=== PATIENT | female | born 2005 | race Caucasian/White ===

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

== ENCOUNTER → 2024-01-03 | Outpatient (REF) | payer OTHER ==
[~2024-01-03] MED LIST changes: +CELE0.09 PO; +NITR-67 PO
== END ==
LOC: M LAB REF 19:55
PROVIDERS: ATTEND Physician Assistant Medical
DX: B34.9 Viral infection, unspecified (principal)

== ENCOUNTER → 2024-01-03 | Outpatient (REF) | payer OTHER ==
[2024-01-03 20:16] LABS: APPEARANCE, URINE CLEAR (CLEAR); BACTERIA, URINE AUTO NEGATIVE (NEGATIVE); BILIRUBIN, URINE AUTO NEGATIVE (NEGATIVE); BLOOD, URINE BLOOD 1+ (NEGATIVE); COLOR, URINE YELLOW (YELLOW); GLUCOSE, URINE (UA) AUTO NEGATIVE (NEGATIVE); KETONE, URINE AUTO NEGATIVE (NEGATIVE); LEUKOCYTE ESTERASE, URINE AUTO NEGATIVE (NEGATIVE); MUCUS, URINE SMALL (NEGATIVE); NITRITE, URINE AUTO NEGATIVE (NEGATIVE); PROTEIN, URINE AUTO NEGATIVE (NEGATIVE); RBC, URINE AUTO 1 /HPF (0-3); SPECIFIC GRAVITY URINE AUTO 1.023 (1.002-1.035); SQUAMOUS EPITHELIAL CELL UR AU 1 /HPF (0-6); UROBILINOGEN, URINE AUTO 0.2 mg/dL (0.0-2.0); WBC, URINE AUTO 2 /HPF (0-3)
== END ==
LOC: M LAB REF 19:38
PROVIDERS: ATTEND Physician Assistant Medical
DX: N39.0 Urinary tract infection, site not specified (principal)

== ENCOUNTER 2024-01-06 00:21 | Emergency (ER) | payer OTHER ==
[~2024-01-06] VITALS: Ht 162.6 cm; Wt 95.5 kg
[2024-01-06 03:33] VITALS: BP 136/78; TEMP 97.8; O2SAT 100
== END 2024-01-06 04:16 | disposition left against medical advice (07) ==
LOC: M ED 00:21
DX: Z53.21 Procedure and treatment not carried out due to patient leaving prior to being seen by health care provider (principal)

== ENCOUNTER → 2024-01-07 | Outpatient (CLI) | payer OTHER ==
[~2024-01-07] MED LIST changes: +ABIL1INJ2 IM; +ALBU2.5V10 INH; +DICY-61 PO; +HALO1TAB19 PO; +METR-265 PO; +NAPR500T6 PO; +OXCA300T14 PO; +PERM5CRE9 EXT; +RISATAB3 PO; +SERT50TA29 PO
== END ==
LOC: M WUC 11:26
PROVIDERS: ATTEND Nurse Practitioner Family
DX: J45.20 Mild intermittent asthma, uncomplicated (principal)

== ENCOUNTER → 2024-01-08 | Outpatient (REF) | payer OTHER ==
[~2024-01-08] MED LIST changes: -ABIL1INJ2 IM; -ALBU2.5V10 INH; -DICY-61 PO; -HALO1TAB19 PO; -METR-265 PO; -NAPR500T6 PO; -OXCA300T14 PO; -PERM5CRE9 EXT; -RISATAB3 PO; -SERT50TA29 PO
[2024-01-08 18:05] LABS: BASO # 0.1 10^3/uL (0.0-0.2); BASO % 1.4 % (0.0-1.0); EOS # 0.4 10^3/uL (0.0-0.5); EOS % 5.7 % (0.0-3.0); HEMATOCRIT 41.4 % (36.0-47.0); HEMOGLOBIN 13.1 g/dl (12.0-15.5); LYMPH # 2.5 10^3/uL (1.5-5.0); LYMPH % 32.9 % (24.0-44.0); MEAN CORPUSCULAR HEMOGLOBIN 27.3 pg (27.0-33.0); MEAN CORPUSCULAR HGB CONC 31.6 g/dl (32.0-36.5); MEAN CORPUSCULAR VOLUME 86.4 fl (80.0-96.0); MONO # 0.5 10^3/uL (0.0-0.8); MONO % 6.9 % (2.0-8.0); NEUTROPHILS % 52.7 % (36.0-66.0); PLATELET COUNT, AUTOMATED 316 10^3/uL (150-450); RED BLOOD COUNT 4.79 10^6/uL (4.00-5.40); WHITE BLOOD COUNT 7.6 10^3/uL (4.0-10.0)
[2024-01-08 18:32] LABS: LIPASE 40 U/L (12-53)
[2024-01-08 18:33] LABS: ALBUMIN 3.7 G/DL (3.2-5.2); ALKALINE PHOSPHATASE 138 U/L (46-116); ALT/SGPT 22 U/L (7.0-40); AST/SGOT 12 U/L (<34); BILIRUBIN,TOTAL 0.2 MG/DL (0.3-1.2); BLOOD UREA NITROGEN 10 MG/DL (9-23); CALCIUM LEVEL 9.8 MG/DL (8.5-10.1); CARBON DIOXIDE LEVEL 26 MMOL/L (20-31); CHLORIDE LEVEL 107 MMOL/L (98-107); CREATININE FOR GFR 0.64 MG/DL (0.55-1.30); GLUCOSE, FASTING 102 MG/DL (60-100); SODIUM LEVEL 141 MMOL/L (136-145); TOTAL PROTEIN 6.7 G/DL (5.7-8.2)
[2024-01-08 18:57] LABS: HCG, SERUM QUALITATIVE NEGATIVE (NEGATIVE)
== END ==
LOC: M LAB REF 16:48
PROVIDERS: ATTEND Physician Assistant
DX: R10.9 Unspecified abdominal pain (principal)

== ENCOUNTER 2024-01-12 10:45 | Outpatient (RCR) | payer OTHER ==
[2024-01-14] MEDS ORDERED: ABIL1INJ2 IM (16:38)
[2024-01-15] MEDS ORDERED: METR-265 PO (06:53)
[2024-01-15] MEDS ORDERED: ATOM25CA2 PO (07:06)
[2024-01-15] MEDS ORDERED: DICY-61 PO (07:06)
[2024-01-15] MEDS ORDERED: ALBU2.5V10 INH (07:06)
[2024-01-15] MEDS ORDERED: NAPR500T6 PO (07:06)
[2024-01-15] MEDS ORDERED: HALO1TAB19 PO (07:06)
[2024-01-15] MEDS ORDERED: OXCA300T14 PO (07:06)
[2024-01-15] MEDS ORDERED: RISATAB3 PO (07:06)
[2024-01-15] MEDS ORDERED: PERM5CRE9 EXT (07:06)
[2024-01-15] MEDS ORDERED: SERT50TA29 PO (07:06)
== END 2024-01-21 ==
LOC: M PT 10:45
PROVIDERS: ATTEND Physician Assistant
DX: S83.212A Bucket-handle tear of medial meniscus, current injury, left knee, initial encounter (principal)

== ENCOUNTER 2024-01-14 12:03 | Inpatient (IN) | payer MEDICAID, OTHER ==
[~2024-01-14] VITALS: Ht 162.6 cm; Wt 95.5 kg
[2024-01-14 14:26] LABS: HEMOGLOBIN 13.1 g/dl (12.0-15.5); MEAN CORPUSCULAR HEMOGLOBIN 27.8 pg (27.0-33.0); PLATELET COUNT, AUTOMATED 248 10^3/uL (150-450); RED BLOOD COUNT 4.71 10^6/uL (4.00-5.40)
[2024-01-14 14:43] LABS: BARBITURATES URINE NEGATIVE (NEGATIVE); COCAINE METABOLITE URINE NEGATIVE (NEGATIVE); METHADONE URINE NEGATIVE (NEGATIVE); OPIATES URINE NEGATIVE (NEGATIVE)
[2024-01-14 14:44] LABS: AMPHETAMINES LEVEL URINE NEGATIVE (NEGATIVE); BENZODIAZEPINES URINE NEGATIVE (NEGATIVE); CANNABINOIDS URINE NEGATIVE (NEGATIVE); PHENCYCLIDINE URINE NEGATIVE (NEGATIVE)
[2024-01-14 14:45] LABS: ETHYL ALCOHOL (ETHANOL) 0.003 % (0.000-0.010)
[2024-01-14 14:47] LABS: ALBUMIN 3.9 G/DL (3.2-5.2); ALKALINE PHOSPHATASE 145 U/L (46-116); ALT/SGPT 26 U/L (7.0-40); AST/SGOT 16 U/L (<34); BILIRUBIN,DIRECT 0.1 MG/DL (<0.4); BILIRUBIN,TOTAL 0.4 MG/DL (0.3-1.2); BLOOD UREA NITROGEN 14 MG/DL (9-23); CALCIUM LEVEL 9.9 MG/DL (8.5-10.1); CARBON DIOXIDE LEVEL 28 MMOL/L (20-31); CHLORIDE LEVEL 108 MMOL/L (98-107); CREATININE FOR GFR 0.69 MG/DL (0.55-1.30); GLUCOSE, FASTING 74 MG/DL (60-100); POTASSIUM SERUM 4.3 MMOL/L (3.5-5.1); SALICYLATE LEVEL < 3.0 MG/DL (<30); SODIUM LEVEL 142 MMOL/L (136-145); TOTAL PROTEIN 6.7 G/DL (5.7-8.2)
[2024-01-14 14:49] LABS: THYROID STIMULATING HORMONE 0.781 uIU/ML (0.48-4.17)
[2024-01-14] MEDS ORDERED: ABIL1INJ2 IM (16:38)
[2024-01-14] MEDS ORDERED: traZODone 50 MG TAB PO PRN (16:55)
[2024-01-14] MEDS ORDERED: MOM 30ML SUSPENSION UDC PO PRN (17:25)
[2024-01-14] MEDS ORDERED: IBUPROFEN 400MG TAB PO PRN (17:25)
[2024-01-14] MEDS: haloperidoL 0.5 MG TAB PO SCH (20:34)
[2024-01-14] MEDS: GABAPENTIN 300 MG CAP PO SCH (20:34)
[2024-01-14 22:30] VITALS: BP 161/92; TEMP 98.3; O2SAT 98
[2024-01-14] MEDS: traZODone 50 MG TAB PO PRN (22:38)
[2024-01-14] MEDS: ACETAMINOPHEN TAB 650MG DOSE (2X325MG) PO PRN (22:38)
[2024-01-15 06:20] VITALS: BP 119/68; TEMP 98; O2SAT 99
[2024-01-15] MEDS ORDERED: METR-265 PO (06:53)
[2024-01-15] MEDS ORDERED: DICY-61 PO (07:06)
[2024-01-15] MEDS ORDERED: NAPR500T6 PO (07:06)
[2024-01-15] MEDS ORDERED: RISATAB3 PO (07:06)
[2024-01-15] MEDS ORDERED: ATOM25CA2 PO (07:06)
[2024-01-15] MEDS ORDERED: HALO1TAB19 PO (07:06)
[2024-01-15] MEDS ORDERED: OXCA300T14 PO (07:06)
[2024-01-15] MEDS ORDERED: ALBU2.5V10 INH (07:06)
[2024-01-15] MEDS ORDERED: SERT50TA29 PO (07:06)
[2024-01-15] MEDS ORDERED: PERM5CRE9 EXT (07:06)
[2024-01-15] MEDS ORDERED: HOME MED LIST COMPLETE! XX SCH (07:10)
[2024-01-15] MEDS ORDERED: CETIRIZINE (ZyrTEC) 10 MG TAB PO SCH (09:00)
[2024-01-15] MEDS ORDERED: ATOMOXETINE HCL 40 MG CAP (STRATTERA) PO SCH (09:00)
[2024-01-15] MEDS ORDERED: FLUTICASONE PROP 0.05% NASAL SPRAY 16 GM (FLONASE) NARES SCH (09:00)
[2024-01-15] MEDS: LACTOBACILLUS ACIDOPHILUS CAP (BACID) PO SCH (09:11)
[2024-01-15] MEDS: CETIRIZINE (ZyrTEC) 10 MG TAB PO SCH (09:12)
[2024-01-15] MEDS: NAPROXEN 250 MG TAB PO SCH (09:12)
[2024-01-15] MEDS: OXcarbazepine 300 MG TAB PO SCH (09:12)
[2024-01-15] MEDS: DICYCLOMINE 10 MG CAP PO SCH (09:12)
[2024-01-15] MEDS: MAALOX 30 ML SUSP *UDC PO PRN (09:48)
[2024-01-15] MEDS: FLUTICASONE PROP 0.05% NASAL SPRAY 16 GM (FLONASE) NARES SCH (09:48)
[2024-01-15] MEDS: AZELASTINE 137MCG NASAL SPY 30 ML (ASTELIN) SCH (09:48)
[2024-01-15 18:27] VITALS: BP 151/89; TEMP 98.2; O2SAT 96
[2024-01-15] MEDS: ONDANSETRON 4MG ORAL DISINTEGRATING TAB PO PRN (19:06)
[2024-01-15] MEDS: MONTELUKAST 10 MG TAB PO SCH (21:14)
[2024-01-15] MEDS: OMEPRAZOLE 20MG CAP PO SCH (21:14)
[2024-01-15] MEDS: PERMETHRIN 5% CREAM 60 GM EXT SCH (21:20)
[2024-01-16 06:15] VITALS: BP 145/78; TEMP 97.6
[2024-01-16] MEDS ORDERED: ALBUTEROL SULFATE 2.5MG/0.5ML INH NEB SOLN INH PRN (08:55)
[2024-01-16] MEDS: ATOMOXETINE HCL 40 MG CAP (STRATTERA) PO SCH (09:00)
[2024-01-16] MEDS ORDERED: LEVONORGESTREL ETHINYL ESTRADIOL PO SCH (09:00)
[2024-01-16] MEDS: prednisoLONE ACET 1% OPHTH SUSP 5ML OU SCH (09:00)
[2024-01-16] MEDS: UNRESOLVED PATIENT OWN MED ORDER XX SCH (11:14)
[2024-01-16] MEDS: diphenhydrAMINE 25MG CAP PO PRN (19:16)
[2024-01-17 10:16] VITALS: BP 145/78; TEMP 97.6; O2SAT 96
[2024-01-17] MEDS: ONDANSETRON 4MG TAB PO PRN (10:56)
[2024-01-17] MEDS: FLUCONAZOLE 50MG TABLET PO ONE (15:48)
[2024-01-18 06:32] VITALS: BP 129/80; TEMP 98.7; O2SAT 98
[2024-01-18] MEDS ORDERED: ONDANSETRON 4MG ORAL DISINTEGRATING TAB PO PRN (10:15)
[2024-01-18 22:00] VITALS: BP 129/80; TEMP 98.7; O2SAT 98
[2024-01-19 06:16] VITALS: BP 127/74; TEMP 98.7; O2SAT 97
[2024-01-19] MEDS: diphenhydrAMINE 50MG CAP PO ONE (14:59)
[2024-01-19] MEDS: LORazepam 2 MG TAB PO ONE (15:00)
[2024-01-19 19:46] VITALS: BP 141/67; TEMP 97.1
[2024-01-20 06:09] VITALS: BP 130/72; TEMP 98.1; O2SAT 97
[2024-01-20] MEDS ORDERED: chlorproMAZINE INJ 50MG/2ML AMP As Ordered ONE (10:12)
[2024-01-20] MEDS: chlorproMAZINE INJ 50MG/2ML AMP IM STA (10:16)
[2024-01-20] MEDS: LORazepam 2 MG TAB PO STA (10:19)
[2024-01-20] MEDS: diphenhydrAMINE 50MG CAP PO STA (10:19)
[2024-01-20] MEDS: diphenhydrAMINE 50MG/ML VIAL IM STA (10:20)
[2024-01-20] MEDS: LORazepam 2 MG/ML 1ML VIAL IM STA (10:20)
[2024-01-20] MEDS: HALOPERIDOL LACTATE 5MG/ML VIAL IM STA (10:21)
[2024-01-20] MEDS: ALBUTEROL 90 MCG/ACT 8GM HFA INHALER INH PRN (10:33)
[2024-01-20 17:15] VITALS: BP 106/58; TEMP 97.5; O2SAT 98
[2024-01-21 06:07] VITALS: BP 116/58; TEMP 97.5; O2SAT 98
[2024-01-21] MEDS: GABAPENTIN 300 MG CAP PO PRN (10:53)
[2024-01-22] MEDS: diphenhydrAMINE 25MG CAP PO SCH (09:26)
[2024-01-23 06:15] VITALS: BP 145/85; TEMP 97.6; O2SAT 97
[2024-01-23] MEDS ORDERED: DIPH-435 PO (08:00)
[2024-01-23] MEDS ORDERED: HALO1TAB19 PO (08:00)
== END 2024-01-23 13:27 | disposition home or self-care (01) | DRG 753 ==
LOC: M ED 12:03 → M ED INP 17:25 → M PSY 20:59
PROVIDERS: ADMIT Student in an Organized Health Care Education/Training Program; ATTEND Psychiatry & Neurology Child & Adolescent Psychiatry
DX: F31.9 Bipolar disorder, unspecified (principal); R45.851 Suicidal ideations; F43.10 Post-traumatic stress disorder, unspecified; F41.9 Anxiety disorder, unspecified; F60.3 Borderline personality disorder; J45.909 Unspecified asthma, uncomplicated; D50.9 Iron deficiency anemia, unspecified; M25.561 Pain in right knee; K21.9 Gastro-esophageal reflux disease without esophagitis; L20.9 Atopic dermatitis, unspecified; K58.9 Irritable bowel syndrome, unspecified; Z78.1 Physical restraint status; Z81.8 Family history of other mental and behavioral disorders; Z62.819 Personal history of unspecified abuse in childhood; Z63.8 Other specified problems related to primary support group; Z79.899 Other long term (current) drug therapy; Z88.2 Allergy status to sulfonamides

== ENCOUNTER 2024-02-17 09:10 | Day surgery (SDC) | payer OTHER ==
[~2024-02-17] VITALS: Ht 157.5 cm; Wt 94.6 kg
[~2024-02-17 09:10] MED LIST changes: +ABIL1INJ2 IM; +ALBU2.5V10 INH; -ARIP1TAB43 PO; +ARIP20TA51 PO; +DICY-61 PO; +DIPH-435 PO; +HALO1TAB19 PO; +METR-265 PO; +NAPR500T6 PO; +NS 1,000 ML IV ONE; +OXCA300T14 PO; +PERM5CRE9 EXT; +POLY2.5S OU; +RISATAB3 PO; +SERT50TA29 PO; +propofoL 200 MG/20 ML VIAL As Ordered ONE
[2024-02-17] MEDS ORDERED: MIDAZOLAM INJ 2MG/2ML VIAL As Ordered ONE (10:47)
[2024-02-17] MEDS ORDERED: fentaNYL 100 MCG/2 ML INJECTION As Ordered ONE (10:47)
[2024-02-17 11:12] VITALS: TEMP 98.5
[2024-02-17 11:32] VITALS: BP 142/77; O2SAT 98
[2024-02-17 13:07] LABS: CLOSTRIDIUM DIFFICILE PCR POSITIVE (NEGATIVE)
== END 2024-02-17 11:45 | disposition home or self-care (01) ==
LOC: M OPP 09:10
PROVIDERS: ATTEND Internal Medicine Gastroenterology
DX: K52.9 Noninfective gastroenteritis and colitis, unspecified (principal); R11.0 Nausea; K29.80 Duodenitis without bleeding; K31.89 Other diseases of stomach and duodenum; D80.2 Selective deficiency of immunoglobulin A [IgA]; R12 Heartburn; J45.909 Unspecified asthma, uncomplicated; Z79.1 Long term (current) use of non-steroidal anti-inflammatories (NSAID); Z79.51 Long term (current) use of inhaled steroids; Z79.82 Long term (current) use of aspirin; Z79.891 Long term (current) use of opiate analgesic; Z79.899 Other long term (current) drug therapy; Z88.2 Allergy status to sulfonamides
CPT/HCPCS: 43239; 45380; 87324; 88305; J2250; J3010

== ENCOUNTER → 2024-03-16 | Outpatient (REF) | payer OTHER ==
[~2024-03-16] MED LIST changes: -NS 1,000 ML IV ONE; -propofoL 200 MG/20 ML VIAL As Ordered ONE
[2024-03-17 13:09] LABS: APPEARANCE, URINE HAZY (CLEAR); BACTERIA, URINE AUTO NEGATIVE (NEGATIVE); BILIRUBIN, URINE AUTO NEGATIVE (NEGATIVE); BLOOD, URINE BLOOD 2+ (NEGATIVE); CALCIUM OXALATE CRYSTALS MODERATE; COLOR, URINE YELLOW (YELLOW); GLUCOSE, URINE (UA) AUTO NEGATIVE (NEGATIVE); KETONE, URINE AUTO NEGATIVE (NEGATIVE); LEUKOCYTE ESTERASE, URINE AUTO NEGATIVE (NEGATIVE); MUCUS, URINE SMALL (NEGATIVE); NITRITE, URINE AUTO NEGATIVE (NEGATIVE); PROTEIN, URINE AUTO NEGATIVE (NEGATIVE); RBC, URINE AUTO 2 /HPF (0-3); SPECIFIC GRAVITY URINE AUTO 1.021 (1.002-1.035); SQUAMOUS EPITHELIAL CELL UR AU 2 /HPF (0-6); UROBILINOGEN, URINE AUTO 0.2 mg/dL (0.0-2.0); WBC, URINE AUTO 2 /HPF (0-3)
[2024-03-17 14:54] LABS: Trichomonas vaginalis (AMP) NOT DETECTED (NEGATIVE)
[2024-03-17 15:17] LABS: GC DNA AMPLIFICATION NEGATIVE (NEGATIVE)
== END ==
LOC: M LAB REF 12:34
PROVIDERS: ATTEND Nurse Practitioner Family
DX: R30.0 Dysuria (principal)

== ENCOUNTER 2024-04-14 12:46 | Outpatient (RCR) | payer OTHER ==
[~2024-04-14 12:46] MED LIST changes: -ARIP10TA32; -ARIP10TA32 PO; +ARIP10TA63; +ARIP10TA63 PO; +GABA-1172 PO; -GABA-282 PO; +NAPR-1405 PO; -NAPR500T6 PO
== END 2024-04-22 ==
LOC: M PT 12:46
PROVIDERS: ATTEND Physician Assistant
DX: S83.512D Sprain of anterior cruciate ligament of left knee, subsequent encounter (principal)

== ENCOUNTER 2024-05-05 09:14 | Outpatient (RCR) | payer OTHER | END 2024-05-22 | LOC: M PT 09:14 | PROVIDERS: ATTEND Physician Assistant | DX: S83.512D Sprain of anterior cruciate ligament of left knee, subsequent encounter (principal); Z98.890 Other specified postprocedural states ==

== ENCOUNTER → 2024-06-29 | Outpatient (REF) | payer OTHER ==
[2024-06-30 13:21] LABS: AMORPHOUS SEDIMENT MODERATE (NEGATIVE); APPEARANCE, URINE TURBID (CLEAR); BACTERIA, URINE AUTO 1+ (NEGATIVE); BILIRUBIN, URINE AUTO NEGATIVE (NEGATIVE); BLOOD, URINE BLOOD NEGATIVE (NEGATIVE); COLOR, URINE AMBER (YELLOW); GLUCOSE, URINE (UA) AUTO NEGATIVE (NEGATIVE); KETONE, URINE AUTO NEGATIVE (NEGATIVE); LEUKOCYTE ESTERASE, URINE AUTO 3+ (NEGATIVE); MUCUS, URINE LARGE (NEGATIVE); NITRITE, URINE AUTO NEGATIVE (NEGATIVE); PROTEIN, URINE AUTO NEGATIVE (NEGATIVE); RBC, URINE AUTO 3 /HPF (0-3); SPECIFIC GRAVITY URINE AUTO 1.024 (1.002-1.035); SQUAMOUS EPITHELIAL CELL UR AU 0 /HPF (0-6); UROBILINOGEN, URINE AUTO 0.2 mg/dL (0.0-2.0); WBC, URINE AUTO 132 /HPF (0-3)
[2024-06-30 14:14] LABS: Trichomonas vaginalis (AMP) NOT DETECTED (NEGATIVE)
[2024-06-30 14:38] LABS: GC DNA AMPLIFICATION NEGATIVE (NEGATIVE)
== END ==
LOC: M LAB REF 12:21
PROVIDERS: ATTEND Nurse Practitioner Family
DX: R30.0 Dysuria (principal); R35.0 Frequency of micturition

== ENCOUNTER → 2024-08-09 | Outpatient (REF) | payer OTHER ==
[2024-08-09 17:14] LABS: THYROID STIMULATING HORMONE 2.706 uIU/ML (0.48-4.17)
[2024-08-09 17:15] LABS: ALKALINE PHOSPHATASE 160 U/L (35-104); ALT/SGPT 23 U/L (7.0-40); AST/SGOT 13 U/L (<34); BILIRUBIN,DIRECT < 0.1 MG/DL (<0.4); BILIRUBIN,TOTAL 0.3 MG/DL (0.3-1.2); TOTAL PROTEIN 7.3 G/DL (5.7-8.2)
== END ==
LOC: M LAB REF 16:08
PROVIDERS: ATTEND Nurse Practitioner Family
DX: R11.2 Nausea with vomiting, unspecified (principal); Z68.36 Body mass index [BMI] 36.0-36.9, adult

== ENCOUNTER → 2024-09-26 | Outpatient (REF) | payer OTHER ==
[~2024-09-26] MED LIST changes: +FLUV100T20; +FLUV100T20 PO; -FLUV100T25; -FLUV100T25 PO; +FLUV25TA11; -FLUV25TA13
== END ==
LOC: M LAB REF 17:09
PROVIDERS: ATTEND Physician Assistant
DX: J02.9 Acute pharyngitis, unspecified (principal)

== ENCOUNTER 2025-04-09 09:44 | Emergency (ER) | payer MEDICAID, OTHER ==
[~2025-04-09] VITALS: Ht 162.6 cm; Wt 100.6 kg
[~2025-04-09 09:44] MED LIST changes: -IBUP-1022 PO; +IBUP600T42 PO; +LITH300T2; +METH36TA13 PO; -METH36TA5 PO; -PERM5CRE9 EXT; +PERM60CR2 EXT; +TOPI-21
[2025-04-09 11:49] LABS: BASO # 0.1 10^3/uL (0.0-0.2); BASO % 1.3 % (0.0-1.0); EOS # 0.5 10^3/uL (0.0-0.5); EOS % 6.0 % (0.0-3.0); LYMPH # 2.0 10^3/uL (1.5-5.0); LYMPH % 23.8 % (24.0-44.0); MONO # 0.4 10^3/uL (0.0-0.8); MONO % 5.2 % (2.0-8.0); NEUTROPHILS # 5.4 10^3/uL (1.5-8.5); NEUTROPHILS % 63.3 % (36.0-66.0); PLATELET COUNT, AUTOMATED 312 10^3/uL (150-450)
[2025-04-09 11:59] LABS: KETONE, URINE AUTO RFX NEGATIVE (NEGATIVE); LEUKOCYTE ESTERASE UR AUTO RFX NEGATIVE (NEGATIVE); MUCUS, URINE RFX SMALL (NEGATIVE); NITRITE, URINE AUTO RFX NEGATIVE (NEGATIVE); RBC, URINE AUTO RFX 1 /HPF (0-3); SQUAM EPITHELIAL CELL UR AURFX 1 /HPF (0-6); WBC, URINE AUTO RFX 4 /HPF (0-3)
[2025-04-09 12:13] LABS: ALT/SGPT 26 U/L (7.0-40); AST/SGOT 16 U/L (<34); CALCIUM LEVEL 9.9 MG/DL (8.5-10.1); CARBON DIOXIDE LEVEL 23 MMOL/L (20-31); CHLORIDE LEVEL 110 MMOL/L (98-107); CREATININE FOR GFR 0.86 MG/DL (0.55-1.30); GLOMERULAR FILTRATION RATE > 90.0 (>60); HCG, SERUM QUALITATIVE NEGATIVE (NEGATIVE); POTASSIUM SERUM 4.1 MMOL/L (3.5-5.1); SODIUM LEVEL 144 MMOL/L (136-145)
[2025-04-09 13:00] VITALS: BP 136/68; TEMP 97.1; O2SAT 100
[2025-04-09] MEDS: ACETAMINOPHEN 500 MG TAB PO ONE (13:17)
[2025-04-09] MEDS: diphenhydrAMINE 50 MG/ML VIAL IV ONE (13:17)
[2025-04-09] MEDS: NS (Normal Saline) 0.9% 1,000 ML IV ONE (13:17)
[2025-04-09] MEDS ORDERED: ISOVUE-370 76% 100 ML VIAL As Ordered ONE (13:18)
== END 2025-04-09 15:40 | disposition home or self-care (01) ==
LOC: M ED 09:44
DX: R10.9 Unspecified abdominal pain (principal); D64.9 Anemia, unspecified; J45.909 Unspecified asthma, uncomplicated; Z88.2 Allergy status to sulfonamides; Z91.09 Other allergy status, other than to drugs and biological substances; Z79.51 Long term (current) use of inhaled steroids; Z79.899 Other long term (current) drug therapy
CPT/HCPCS: 71046; 74174; 80047; 80048; 80076; 81001; 83690; 84703; 85025; 96374; 99284; J1200; Q9967

== ENCOUNTER → 2025-04-18 | Outpatient (REF) | payer OTHER ==
[2025-04-18 18:39] LABS: APPEARANCE, URINE CLOUDY (CLEAR); BACTERIA, URINE AUTO 1+ (NEGATIVE); BILIRUBIN, URINE AUTO NEGATIVE (NEGATIVE); BLOOD, URINE BLOOD 2+ (NEGATIVE); GLUCOSE, URINE (UA) AUTO NEGATIVE (NEGATIVE); KETONE, URINE AUTO NEGATIVE (NEGATIVE); LEUKOCYTE ESTERASE, URINE AUTO 3+ (NEGATIVE); NITRITE, URINE AUTO NEGATIVE (NEGATIVE); PROTEIN, URINE AUTO NEGATIVE (NEGATIVE); RBC, URINE AUTO 5 /HPF (0-3); SPECIFIC GRAVITY URINE AUTO 1.012 (1.002-1.035); SQUAMOUS EPITHELIAL CELL UR AU 12 /HPF (0-6); UROBILINOGEN, URINE AUTO 0.2 mg/dL (0.0-2.0); WBC, URINE AUTO 153 /HPF (0-3)
== END ==
LOC: M LAB REF 16:57
PROVIDERS: ATTEND Physician Assistant Medical
DX: N39.0 Urinary tract infection, site not specified (principal)

== ENCOUNTER 2025-04-20 18:41 | Emergency (ER) | payer OTHER ==
[2025-04-20 18:46] VITALS: BP 142/92; TEMP 97.8; O2SAT 98
== END 2025-04-20 18:57 | disposition left against medical advice (07) ==
LOC: M ED 18:41
DX: Z53.21 Procedure and treatment not carried out due to patient leaving prior to being seen by health care provider (principal)

== ENCOUNTER → 2025-04-26 | Outpatient (CLI) | payer OTHER | LOC: M LAB 08:45 | DX: F31.9 Bipolar disorder, unspecified (principal) ==

== ENCOUNTER → 2025-05-06 | Outpatient (REF) | payer OTHER ==
[2025-05-06 22:26] LABS: APPEARANCE, URINE HAZY (CLEAR); BACTERIA, URINE AUTO NEGATIVE (NEGATIVE); BILIRUBIN, URINE AUTO NEGATIVE (NEGATIVE); BLOOD, URINE BLOOD 1+ (NEGATIVE); CALCIUM OXALATE CRYSTALS MODERATE; GLUCOSE, URINE (UA) AUTO NEGATIVE (NEGATIVE); KETONE, URINE AUTO NEGATIVE (NEGATIVE); LEUKOCYTE ESTERASE, URINE AUTO TRACE (NEGATIVE); MUCUS, URINE SMALL (NEGATIVE); NITRITE, URINE AUTO NEGATIVE (NEGATIVE); PROTEIN, URINE AUTO NEGATIVE (NEGATIVE); RBC, URINE AUTO 2 /HPF (0-3); SPECIFIC GRAVITY URINE AUTO 1.023 (1.002-1.035); SQUAMOUS EPITHELIAL CELL UR AU 1 /HPF (0-6); UROBILINOGEN, URINE AUTO 0.2 mg/dL (0.0-2.0); WBC, URINE AUTO 11 /HPF (0-3)
== END ==
LOC: M LAB REF 22:05
PROVIDERS: ATTEND Physician Assistant Medical
DX: N39.0 Urinary tract infection, site not specified (principal)

== ENCOUNTER → 2025-05-13 | Outpatient (REF) | payer OTHER | LOC: M LAB REF 16:47 | PROVIDERS: ATTEND Physician Assistant | DX: B34.9 Viral infection, unspecified (principal) ==

== ENCOUNTER → 2025-06-15 | Outpatient (CLI) | payer OTHER ==
[2025-06-15 12:37] LABS: ALT/SGPT 26 U/L (7.0-40); AST/SGOT 25 U/L (<34); CALCIUM LEVEL 8.9 MG/DL (8.5-10.1); CARBON DIOXIDE LEVEL 26 MMOL/L (20-31); CHLORIDE LEVEL 110 MMOL/L (98-107); CREATININE FOR GFR 0.83 MG/DL (0.55-1.30); GLOMERULAR FILTRATION RATE > 90.0 (>60); POTASSIUM SERUM 4.0 MMOL/L (3.5-5.1); SODIUM LEVEL 145 MMOL/L (136-145)
[2025-06-15 12:38] LABS: LITHIUM LEVEL 0.89 MMOL/L (1.0-1.20)
== END ==
LOC: M WUC 10:45
DX: F31.9 Bipolar disorder, unspecified (principal)

== ENCOUNTER 2025-06-22 01:28 | Emergency (ER) | payer OTHER ==
[~2025-06-22] VITALS: Ht 160 cm; Wt 100.0 kg
[2025-06-22 01:33] VITALS: TEMP 98.2
[2025-06-22 02:11] LABS: BASO # 0.1 10^3/uL (0.0-0.2); BASO % 0.6 % (0.0-1.0); EOS # 0.7 10^3/uL (0.0-0.5); EOS % 5.1 % (0.0-3.0); LYMPH # 4.2 10^3/uL (1.5-5.0); LYMPH % 30.2 % (24.0-44.0); MONO # 1.1 10^3/uL (0.0-0.8); MONO % 7.8 % (2.0-8.0); NEUTROPHILS # 7.8 10^3/uL (1.5-8.5); NEUTROPHILS % 55.9 % (36.0-66.0); PLATELET COUNT, AUTOMATED 334 10^3/uL (150-450)
[2025-06-22 02:42] LABS: ALT/SGPT 23 U/L (7.0-40); AST/SGOT 22 U/L (<34); CALCIUM LEVEL 9.4 MG/DL (8.5-10.1); CARBON DIOXIDE LEVEL 23 MMOL/L (20-31); CHLORIDE LEVEL 108 MMOL/L (98-107); CREATININE FOR GFR 0.84 MG/DL (0.55-1.30); GLOMERULAR FILTRATION RATE > 90.0 (>60); POTASSIUM SERUM 3.4 MMOL/L (3.5-5.1); SODIUM LEVEL 143 MMOL/L (136-145)
[2025-06-22 02:44] LABS: HCG, SERUM QUALITATIVE NEGATIVE (NEGATIVE)
[2025-06-22 05:43] LABS: APPEARANCE, URINE CLEAR (CLEAR); BACTERIA, URINE AUTO NEGATIVE (NEGATIVE); BILIRUBIN, URINE AUTO NEGATIVE (NEGATIVE); BLOOD, URINE BLOOD NEGATIVE (NEGATIVE); GLUCOSE, URINE (UA) AUTO NEGATIVE (NEGATIVE); KETONE, URINE AUTO NEGATIVE (NEGATIVE); LEUKOCYTE ESTERASE, URINE AUTO NEGATIVE (NEGATIVE); MUCUS, URINE SMALL (NEGATIVE); NITRITE, URINE AUTO NEGATIVE (NEGATIVE); PROTEIN, URINE AUTO NEGATIVE (NEGATIVE); RBC, URINE AUTO 0 /HPF (0-3); SPECIFIC GRAVITY URINE AUTO 1.017 (1.002-1.035); SQUAMOUS EPITHELIAL CELL UR AU 1 /HPF (0-6); UROBILINOGEN, URINE AUTO 0.2 mg/dL (0.0-2.0); WBC, URINE AUTO 2 /HPF (0-3)
[2025-06-22] MEDS ORDERED: NS (Normal Saline) 0.9% 1,000 ML IV ONE (06:55)
[2025-06-22 07:15] VITALS: BP 147/98
[2025-06-22 07:30] VITALS: O2SAT 99
== END 2025-06-22 07:36 | disposition left against medical advice (07) ==
LOC: M ED 01:28 → EDBD 01:28 → M ED 07:36
DX: R10.9 Unspecified abdominal pain (principal); K21.9 Gastro-esophageal reflux disease without esophagitis; J45.909 Unspecified asthma, uncomplicated; F90.9 Attention-deficit hyperactivity disorder, unspecified type; F31.9 Bipolar disorder, unspecified; F20.9 Schizophrenia, unspecified; Z88.2 Allergy status to sulfonamides; Z91.09 Other allergy status, other than to drugs and biological substances; Z79.51 Long term (current) use of inhaled steroids; Z79.899 Other long term (current) drug therapy; Z53.9 Procedure and treatment not carried out, unspecified reason